=== PATIENT | female | born 1995 | race Caucasian/White ===

== ENCOUNTER 2017-04-29 09:47 | Emergency (ER) | payer BC, SELFPAY ==
[2017-04-29 09:57] VITALS: BP 141/81; PULSE 87; RESP 18; TEMP 36.6; O2SAT 98; BMI 37.2
--- NOTE | 2017-04-29 10:04 | HMH.EDGENADL ---
ED Disposition Clinical Impression: Strain of thoracic spine Qualifiers: Encounter type: initial encounter Qualified Code(s): S29.019A - Strain of muscle and tendon of unspecified wall of thorax, initial encounter Disposition: Home, Self-Care Condition on Discharge: Good Instructions: DI for Thoracic Back Pain Additional Instructions: Off work until 05/04/16. Tylenol for pain. Additional instructions for BACK PAIN: See your physician as soon as possible for further evaluation. Return immediately if back pain becomes intolerable, or if fever, numbness or weakness of your legs, abdominal pain or vaginal bleeding, loss of control of your bowels or bladder. Forms: Work/School Release - Critical Care Critical Care Time: No Attestation: On , the high probability of a clinically significant, sudden or life threatening deterioration of the following system(s) required my full and direct attention, intervention and personal management. The time I documented below is in addition to time spent performing reported procedures but includes the following listed in this critical care notation. Medical Decision Making Vital Signs: 04/29/17 09:57 Temperature 97.8 F Temperature Source Oral Pulse Rate [Right Brachial] 87 Respiratory Rate 18 Blood Pressure [Right Arm] 141/81 Blood Pressure Mean [Right Arm] 101 Blood Pressure Source [Right Arm] Automatic Cuff Blood Pressure Position [Right Arm] Sitting 02 Sat by Pulse Oximetry 98 Oxygen Delivery Method Room Air - Leno Inquiry Pt receiving controlled substance: No Medical Decision Making Narrative: Patient declines anything for pain in the emergency room, including Tylenol. The patient says she does not currently need to urinate and does not want to wait to provide a urine specimen. I discussed with her that her pain is most likely musculoskeletal but offered to check urinalysis, but she declines. I estimate there is LOW risk for ABDOMINAL AORTIC ANEURYSM, ACUTE AORTIC DISSECTION, CAUDA EQUINA SYNDROME, EPIDURAL MASS LESION, OR CORD COMPRESSION, thus I consider the discharge disposition reasonable. General Adult HPI - General Chief complaint: Back Pain/Injury Stated complaint: back pain 8 weeks Mode of Arrival: Family Vehicle Limitations: No Limitations Description of Symptoms (Recalled from ER Triage Doc. by RN): PT STATES THAT AROUND 0900 SHE GOT A SHARP PAIN ON HER MID SPINE. PATIENT IS 8 WEEKS - History of Present Illness HPI narrative: The patient states that at 9 AM at work while doing some light activity she developed a pain over her lower thoracic spine area in the midline. Initially it was mild, felt like a pulled muscle. She says she tried to pop her back to get rid of it but it made the pain worse when she twisted to do so. She says the pain worsens when she bends forward, arches her back or twists side to side or breathes. Sitting up straight reduce the pain. Nothing taken for pain. No numbness or weakness. No abdominal pain. No urinary symptoms. No vomiting. No fever. She is prima , 8 weeks gestation . She had an OB visit on Thursday last week. Egg Grader is Dr. Reynolds. She called the OB office today and states that her OB said it sounded like a pulled muscle and called her in a prescription for a muscle relaxer. - Related Data Allergies Allergy/AdvReac Type Severity Reaction Status Date / Time No Known Allergies Allergy Verified 04/29/17 10:02 [facility] History I have reviewed the patient's past medical history: Yes Laterality Cases: Bilateral: Myringotomy (Ear Tubes) - *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 Smoking Status: Never smoker Alcohol Intake: never - Psychiatric History Expresses thoughts of harming self/others: None Suicide Plan Description: No Plan ROS Obtained: Yes All systems reviewed & no additional complaints - Constitutional Constitutional: Denies fever(s) - Cardiovascular Cardiovascul
[2017-04-29 11:11] VITALS: BP 140/80; PULSE 88; RESP 18; O2SAT 99
== END 2017-04-29 11:13 | disposition home or self-care (01) ==
PROVIDERS: Emergency Provider Emergency Medicine; Family Provider Family Medicine
DX: O26.891 Other specified pregnancy related conditions, first trimester (principal); S29.011A Strain of muscle and tendon of front wall of thorax, initial encounter; Z3A.08 8 weeks gestation of pregnancy
CPT/HCPCS: 99282

== ENCOUNTER 2017-10-13 20:24 | Outpatient (CLI) | payer BC, SELFPAY ==
[2017-10-13 21:00] VITALS: BMI 34.9
[2017-10-13 21:11] LABS: Microscopic, Urine URINE MICROSCOPIC (MICROSCOPIC)
[2017-10-13 21:12] LABS: Appearance,Urine CLEAR (Clear); Bilirubin,Urine Negative (Negative); Blood, Urine Negative (Negative); Color,Urine YELLOW (Yellow); Glucose,Urine (UA) Negative (Negative); Ketones,Urine Negative (Negative); Leukocyte Esterase,Urine TRACE (Negative); Nitrate,Urine Negative (Negative); PH,Urine 7.5 (5.0-8.5); Protein,Urine Negative (Negative)
[2017-10-13 21:19] VITALS: BP 118/74; PULSE 110; RESP 18; TEMP 36.6
[2017-10-13 21:20] VITALS: BMI 34.9
[2017-10-13 21:31] LABS: Bacteria,Urine 1+ /lpf
== END 2017-10-13 22:00 | disposition home or self-care (01) ==
LOC: OBOUT 20:27 → OB 20:29
PROVIDERS: Visit Provider Nurse Practitioner Obstetrics & Gynecology
DX: O26.892 Other specified pregnancy related conditions, second trimester (principal); Z3A.22 22 weeks gestation of pregnancy; M54.5 Low back pain
CPT/HCPCS: 59025; 81001

== ENCOUNTER 2021-11-08 08:01 | Emergency (ER) | payer BC, SELFPAY ==
[2021-11-08 08:20] VITALS: BP 144/89; PULSE 99; RESP 18; TEMP 36.6; O2SAT 98; BMI 40.7
[2021-11-08 08:29] LABS: Apearance,Urine Clear (Clear); Color,Urine Yellow (Yellow); PH,Urine 7.5 (5.0-8.5); Protein,Urine Negative (Negative)
[2021-11-08 08:30] LABS: Bilirubin,Urine Negative (Negative); Blood, Urine Trace (Negative); Glucose,Urine (UA) Negative (Negative); Ketones,Urine Negative (Negative); UTC Leukocyte Esterase,Urine Negative (Negative); UTC Nitrate,Urine Negative (Negative); UTC Pregnancy Test, Urine Negative (Negative); Urobilinogen,Urine 0.2 EU/dl (0.2)
--- NOTE | 2021-11-08 08:34 | HMH.EDUTC ---
[facility] Disposition Clinical Impression: Epigastric abdominal pain, Right ovarian cyst Disposition: Home, Self-Care Condition on Discharge: Good Instructions: DI for Acute Abdominal Pain, DI for Epigastric Pain Additional Instructions: You have been evaluated for upper abdominal pain. This is likely due to gastritis or an ulcer. Please follow bland diet, low acid and caffeine. Do not eat 1 to 2 hours before bedtime. Try Carafate for symptoms of abdominal pain. Follow-up with your primary care doctor in 1 to 2 days for symptom recheck. CT scan today also shows that you have a small right-sided ovarian mass, probably a cyst. 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 Prescriptions: Sucralfate [Carafate 1gm/10mL Susp] 10 ml PO ACHS PRN #250 ml PRN Reason: Acid Reflux Transmission Status: Received by [id number] Referrals: Marli Sheehan [Primary Care Provider] - Medical Decision Making - Leno Inquiry Pt receiving controlled substance: No Leno was queried for this patient: No Vital Signs: 11/08/21 08:20 11/08/21 08:43 11/08/21 09:12 Temperature 97.8 F 97.8 F Temperature Source Oral Oral Pulse Rate 79 Pulse Rate [Left Brachial] 99 H 99 H Respiratory Rate 18 18 16 Blood Pressure 119/80 Blood Pressure [Left Arm] 144/89 H 144/89 H Blood Pressure Mean 93 Blood Pressure Mean [Left Arm] 107 107 Blood Pressure Source [Left Arm] Automatic Cuff Automatic Cuff Blood Pressure Position [Left Arm] Sitting Sitting 02 Sat by Pulse Oximetry 98 98 98 Oxygen Delivery Method Room Air Room Air Room Air 11/08/21 09:35 11/08/21 11:01 11/08/21 11:38 Temperature 98.5 F Temperature Source Pulse Rate 81 79 71 Pulse Rate [Left Brachial] Respiratory Rate 16 Blood Pressure 110/66 113/62 124/76 Blood Pressure [Left Arm] Blood Pressure Mean Blood Pressure Mean [Left Arm] Blood Pressure Source [Left Arm] Blood Pressure Position [Left Arm] 02 Sat by Pulse Oximetry 96 99 Oxygen Delivery Method - Lab Data Lab Results 11/08/21 08:20: Urine Color Yellow, Urine Appearance Clear, Urine pH 8.5, Ur Specific [place] 1.010, Urine Protein Negative, Urine Glucose (UA) Negative, Urine Ketones Negative, Urine Blood Negative, Urine Nitrate Negative, Urine Bilirubin Negative, Urine Urobilinogen 0.2, Ur Leukocyte Esterase Negative, Urine RBC Occasional, Urine WBC Occasional, Ur Squamous Epith Cells 5-10, Amorphous Sediment Trace, Urine Bacteria Trace 11/08/21 08:25: Urine Color Yellow, Urine Appearance Clear, Urine pH 7.5, Ur Specific [place] 1.020, Urine Protein Negative, Urine Glucose (UA) Negative, Urine Ketones Negative, Urine Blood Trace, Urine Nitrate Negative, Urine Bilirubin Negative, Urine Urobilinogen 0.2, Ur Leukocyte Esterase Negative, [facility] Negative 11/08/21 08:55: WBC 10.9 H, RBC 4.58, Hgb 13.8, Hct 41.4, MCV 90.4, MCH 30.1, MCHC 33.3, RDW 14.3, Plt Count 287, MPV 7.8, Neut % (Auto) 76.0, Lymph % (Auto) 18.1, [place] % (Auto) 4.3, Eos % (Auto) 0.7, Baso % (Auto) 1.0, Neut # (Auto) 8.3 H, Lymph # (Auto) 2.0, [place] # (Auto) 0.5, Eos # (Auto) 0.1, Baso # (Auto) 0.1 11/08/21 08:55: Sodium 138, Potassium 3.9, Chloride 106, Carbon Dioxide 24, Anion Gap 11.9, BUN 6 L, Creatinine 0.60, Estimated Creat Clear 238, Estimated GFR 123, Est GFR ( Amer) 149, Glucose 88, Calcium 9.4, Total Bilirubin < 0.1 L, AST 21, ALT 21, Alkaline Phosphatase 75, Total Protein 7.3, Albumin 4.1, Globulin 3.2, Albumin/Globulin Ratio 1.3, Lipase 31 Result diagrams: 11/08/21 08:55 11/08/21 08:55 Orders (Tests/Meds): ED MEDICATIONS Discontinued Medications Generic Name Dose Route Start Last Admin Trade Name Freq PRN Reason Stop Dose Admin Al Hydrox/Mg Hydrox/Simethicone 30 ml 11/08/21 10:57 11/08/21 11:04 Aluminum/Magnesium/Simethicone 30ml Udc PO 11/08/21 10:58 30 ml ONCE ONE Administration Iopamidol 75 ml 11/08/21 10:13 11/08/21 10:14 Iopamidol-370 (76%);100ml Bottle IV
[2021-11-08 08:43] VITALS: BP 144/89; PULSE 99; RESP 18; TEMP 36.6; O2SAT 98; BMI 40.7
--- NOTE | 2021-11-08 09:00 | HMH.EDGENADL ---
ED Disposition Clinical Impression: Epigastric abdominal pain, Right ovarian cyst Disposition: Home, Self-Care Condition on Discharge: Good Instructions: DI for Epigastric Pain, DI for Acute Abdominal Pain Additional Instructions: You have been evaluated for upper abdominal pain. This is likely due to gastritis or an ulcer. Please follow bland diet, low acid and caffeine. Do not eat 1 to 2 hours before bedtime. Try Carafate for symptoms of abdominal pain. Follow-up with your primary care doctor in 1 to 2 days for symptom recheck. CT scan today also shows that you have a small right-sided ovarian mass, probably a cyst. 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 The time I documented below is in addition to time spent performing reported procedures but includes the following listed in this critical care notation. Medical Decision Making - Medical Records Medical records reviewed: Yes: I reviewed the patient's medical records. - Leno Inquiry Pt receiving controlled substance: No Vital Signs: 11/08/21 08:20 11/08/21 08:43 11/08/21 09:12 Temperature 97.8 F 97.8 F Temperature Source Oral Oral Pulse Rate 79 Pulse Rate [Left Brachial] 99 H 99 H Respiratory Rate 18 18 16 Blood Pressure 119/80 Blood Pressure [Left Arm] 144/89 H 144/89 H Blood Pressure Mean 93 Blood Pressure Mean [Left Arm] 107 107 Blood Pressure Source [Left Arm] Automatic Cuff Automatic Cuff Blood Pressure Position [Left Arm] Sitting Sitting 02 Sat by Pulse Oximetry 98 98 98 Oxygen Delivery Method Room Air Room Air Room Air - Lab Data Lab Results 11/08/21 08:20: Urine Color Yellow, Urine Appearance Clear, Urine pH 8.5, Ur Specific [place] 1.010, Urine Protein Negative, Urine Glucose (UA) Negative, Urine Ketones Negative, Urine Blood Negative, Urine Nitrate Negative, Urine Bilirubin Negative, Urine Urobilinogen 0.2, Ur Leukocyte Esterase Negative, Urine RBC Occasional, Urine WBC Occasional, Ur Squamous Epith Cells 5-10, Amorphous Sediment Trace, Urine Bacteria Trace 11/08/21 08:25: Urine Color Yellow, Urine Appearance Clear, Urine pH 7.5, Ur Specific [place] 1.020, Urine Protein Negative, Urine Glucose (UA) Negative, Urine Ketones Negative, Urine Blood Trace, Urine Nitrate Negative, Urine Bilirubin Negative, Urine Urobilinogen 0.2, Ur Leukocyte Esterase Negative, [facility] Negative 11/08/21 08:55: WBC 10.9 H, RBC 4.58, Hgb 13.8, Hct 41.4, MCV 90.4, MCH 30.1, MCHC 33.3, RDW 14.3, Plt Count 287, MPV 7.8, Neut % (Auto) 76.0, Lymph % (Auto) 18.1, [place] % (Auto) 4.3, Eos % (Auto) 0.7, Baso % (Auto) 1.0, Neut # (Auto) 8.3 H, Lymph # (Auto) 2.0, [place] # (Auto) 0.5, Eos # (Auto) 0.1, Baso # (Auto) 0.1 11/08/21 08:55: Sodium 138, Potassium 3.9, Chloride 106, Carbon Dioxide 24, Anion Gap 11.9, BUN 6 L, Creatinine 0.60, Estimated Creat Clear 238, Estimated GFR 123, Est GFR ( Amer) 149, Glucose 88, Calcium 9.4, Total Bilirubin < 0.1 L, AST 21, ALT 21, Alkaline Phosphatase 75, Total Protein 7.3, Albumin 4.1, Globulin 3.2, Albumin/Globulin Ratio 1.3, Lipase 31 Result diagrams: 11/08/21 08:55 11/08/21 08:55 Orders (Tests/Meds): ED MEDICATIONS Discontinued Medications Generic Name Dose Route Start Last Admin Trade Name Samiq PRN Reason Stop Dose Admin Iopamidol 75 ml 11/08/21 10:13 11/08/21 10:14 Iopamidol-370 (76%);100ml Bottle IV 11/08/21 10:14 75 ml ONCE ONE Administration Ketorolac Tromethamine 15 mg 11/08/21 09:02
[2021-11-08 09:12] VITALS: BP 119/80; PULSE 79; RESP 16; O2SAT 98
[2021-11-08 09:12] LABS: Basophils # 0.1 K/mm3 (0-0.2); Eosinophils # 0.1 K/mm3 (0.0-0.4); Eosinophils % 0.7 % (0.1-12.0); Hematocrit 41.4 % (37.0-47.0); Hemoglobin 13.8 g/dL (12.2-16.2); Lymphocytes % 18.1 % (10-50); Mean Corpuscular HGB Conc 33.3 g/dL (31.8-35.4); Mean Corpuscular Hemoglobin 30.1 pg (27.0-31.2); Mean Corpuscular Volume 90.4 fl (81-99); Mean Platelet Volume 7.8 fl (7.4-10.4); Monocytes # 0.5 K/mm3 (0.1-1.0); Monocytes % 4.3 % (1.7-9.3); Neutrophils # 8.3 K/mm3 (1.8-7.8); Platelet Count 287 K/mm3 (142-424); Red Blood Count 4.58 M/mm3 (4.20-5.40); Red Cell Distribution Width 14.3 % (11.5-17.5); White Blood Count 10.9 K/mm3 (4.8-10.8)
[2021-11-08 09:18] LABS: Alanine Aminotransferase 21 U/L (12-78); Albumin Level 4.1 g/dl (3.5-5.0); Albumin/Globulin Ratio 1.3 (1.1-1.8); Alkaline Phosphatase 75 U/L (38-126); Anion Gap 11.9 mEq/L (5-15); Aspartate Amino Transferase 21 U/L (14-36); Blood Urea Nitrogen 6 mg/dl (7-17); Calcium 9.4 mg/dl (8.4-10.2); Carbon Dioxide 24 mmol/L (22.0-30.0); Chloride 106 mmol/L (98-107); Creatinine Clearance Estimated 238 mL/min (50-200); Estimated Glomerular Filt Rate 123 ml/min (>60); GFR (African American) 149 ML/MIN (>60); Globulin 3.2 g/dL (1.3-3.2); Glucose 88 mg/dl (74-100); Lipase 31 U/L (23-300); Potassium 3.9 mmoL/L (3.5-5.1); Sodium 138 mmol/L (136-145); Total Protein,Serum 7.3 g/dl (6.3-8.2)
[2021-11-08 09:25] LABS: Bilirubin,Total < 0.1 mg/dl (0.2-1.3)
--- NOTE | 2021-11-08 09:29 | PC.NURSE ---
PT MEDICATED AT THIS TIME PER EMAR, NO FURTHER NEEDS
[2021-11-08 09:35] VITALS: BP 110/66; PULSE 81; O2SAT 96
--- NOTE | 2021-11-08 09:37 | CT_ITS ---
FINAL REPORT CLINICAL HISTORY: Epigastric pain x 3 days w nausea FINDINGS: CT OF THE ABDOMEN AND PELVIS WITH CONTRAST Axial CT images of the abdomen and pelvis were obtained after the administration of intravenous contrast. Coronal reformatted images were also obtained and reviewed.This study was performed with techniques to keep radiation doses as low as reasonably achievable (ALARA). Individualized dose reduction techniques using automated exposure control or adjustment of mA and/or kV according to the patient's size were employed. Abdomen: The lung bases are clear. The heart is normal in size. The liver has an unremarkable appearance, without evidence of mass or biliary ductal dilatation. The gallbladder is present. The spleen is unremarkable. No adrenal mass is present. The pancreas has an unremarkable appearance. The kidneys are normal, without evidence of mass or hydronephrosis. The aorta is normal in caliber. There is no free fluid or adenopathy. There is a small umbilical hernia containing fat. Pelvis: The appendix is normal. The urinary bladder is unremarkable. No inflammatory process is seen. There is a 3.9 cm probable cyst in the right ovary. There is no evidence of bowel obstruction. IMPRESSION: No evidence of acute intra-abdominal process. Normal appendix. Probable right ovarian cyst. Reviewed, Interpreted and Dictated by Mckinley Stevens III, MD Transcribed by Marcos Walsh Authenticated and [facility]
--- NOTE | 2021-11-08 09:58 | PC.NURSE ---
RADIOLOGY NOTIFIED OF CT SCAN
[2021-11-08 10:08] LABS: Microscopic, Urine URINE MICROSCOPIC (MICROSCOPIC)
[2021-11-08 10:09] LABS: Appearance,Urine CLEAR (Clear); Bilirubin,Urine Negative (Negative); Blood, Urine Negative (Negative); Color,Urine YELLOW (Yellow); Glucose,Urine (UA) Negative (Negative); Ketones,Urine Negative (Negative); Leukocyte Esterase,Urine Negative (Negative); Nitrate,Urine Negative (Negative); PH,Urine 8.5 (5.0-8.5); Protein,Urine Negative (Negative); Urobilinogen,Urine 0.2 EU/dl (0.2)
[2021-11-08 10:21] LABS: Bacteria,Urine Trace /lpf; WBC,Urine Occasional #/hpf (0-3)
[2021-11-08 10:22] LABS: Amorphous Sediment,Urine Trace /lpf; RBC,Urine Occasional #/hpf (0-3)
[2021-11-08 11:01] VITALS: BP 113/62; PULSE 79; O2SAT 99
--- NOTE | 2021-11-08 11:02 | PC.NURSE ---
ED MD AT BEDSIDE TO REEVALUATE PT
[2021-11-08 11:38] VITALS: BP 124/76; PULSE 71; RESP 16; TEMP 36.9; O2SAT 98
== END 2021-11-08 11:39 | disposition home or self-care (01) ==
LOC: UTC 08:28 → ER 08:41
PROVIDERS: Emergency Medicine; Emergency Provider Nurse Practitioner; PCP Nurse Practitioner Family
DX: N83.201 Unspecified ovarian cyst, right side (principal); R10.13 Epigastric pain
CPT/HCPCS: 74177; 80053; 81001; 81003; 81025; 83690; 85025; 96374; 96375; 99284; J2405; Q9967

== ENCOUNTER 2023-09-13 18:31 | Emergency (ER) | payer BC, SELFPAY ==
[2023-09-13 18:45] VITALS: BP 131/78; PULSE 89; RESP 18; TEMP 36.9; O2SAT 99; BMI 41.3
--- NOTE | 2023-09-13 19:25 | ED_ITS ---
Discharge Plan Disposition Patient Disposition: Home, Self-Care Condition: Good Referrals Follow up/Referrals: Marli Sheehan [Primary Care Provider] - See instructions Clinical Impressions Clinical Impression: Qualifiers: Weeks of gestation: less than 8 weeks Qualified Code(s): Z3A.01 - Less than 8 weeks gestation of Instructions Patient Instructions: Diet Discharge ED [facility]Claire [facility] [place] HPI General Stated complaint: wants test done Mode of Arrival: Ambulatory Source of Information: Patient Limitations: No Limitations Time Seen by Provider: 09/13/23 19:00 Description of Symptoms (Recalled from Triage Doc. by RN): Pt has a positive urine preg test at home and wants another one to make sure. HEENT Symptoms (Recalled from RN notes): No Resp Symptoms (Recalled from RN notes): No Skin Symptoms (Recalled from RN notes): No MS Symptoms (Recalled from RN notes): No Functional Status (Recalled from RN notes): n/a History of Present Illness Provider Complaint: 28 yr old female presents for missed period. positive urine preg test at home and wants another one to make sure. Related Data Allergies Allergy/AdvReac Type Severity Reaction Status Date / Time No Known Allergies Allergy Verified 09/13/23 19:06 Worker's Comp Is this a Worker's Comp case?: No [facility] Disclaimer: The information contained in this section may have been updated after the mathewe nt was seen, as this information can be updated by other users. 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) Smoking Status: Never smoker alcohol intake: never substance use type: denies use current occupational status: other Travel in the last 8 weeks: None household members: family housing: house ROS Obtained: Yes All systems reviewed & no additional complaints except as documented Constitutional Constitutional: Reports system reviewed and no additional complaints, except as documented Eyes Eyes: Reports system reviewed and no additional complaints, except as documented ENT Ears, Nose, Mouth, and Throat: Reports system reviewed and no additional complaints, except as documented Cardiovascular Cardiovascular: Reports system reviewed and no additional complaints, except as documented Respiratory Respiratory: Reports system reviewed and no additional complaints, except as documented Gastrointestinal Gastrointestingal: Reports system reviewed and no additional complaints, except as documented Genitourinary Female Genitourinary: Reports system reviewed and no additional complaints, exce pt as documented and Reports amenorrhea Musculoskeletal Musculoskeletal: Reports system reviewed and no additional complaints, except as documented Integumentary/Breasts Skin/Breast: Reports system reviewed and no additional complaints, except as documented Neurologic Neurologic: Reports system reviewed and no additional complaints, except as documented Endocrine Endocrine: Reports system reviewed and no additional complaints, except as documented Hematologic/Lymphatic Henatologic/Lymphatic: Reports system reviewed and no additional complaints, except as documented Allergic/Immunologic Allergic/Immunologic: Reports system reviewed and no additional complaints, except as documented Physical Exam General General appearance: alert and in no apparent distress Head Head exam: atraumatic Eye Eye exam: Present normal appearance Respiratory Respiratory exam: Present normal lung sounds bilaterally Cardiovascular Cardiovascular exam: Present regular rate and normal rhythm Neurological Exam Neurological exam: Present alert and oriented X3 Medical Decision Making Medical Records Medical records reviewed: Yes I reviewed the patient's medical records. Leno Inquiry Pt receiving controlled substance: No Leno was queried for this patient: No Vital Signs: 09/13/23 18:45 Temperature 98.4 F Temperature Source Oral Pulse Rate [Right Radial] 89 Respiratory Rate 18 Blood Pressure [Right Arm] 131/78 Blood Pressure Mean [Right Arm] 95 Blood Pressure Source [Right Arm] Automatic Cuff Blood Pressure Position [Right Arm] Sitting 02 Sat by Pulse Oximetry 99 Oxygen Delivery Method Room Air Lab Data Lab results reviewed: Yes I reviewed the patient's lab results. Orders (Tests/Meds): ORDERS Category Date Time Status Beta HCG, Quant [HCG,Quantitative] Stat Lab 09/13/23 19:19 Ordered HCG Qualitative, Serum Stat Lab 09/13/23 19:19 Ordered
[2023-09-13 19:38] LABS: UTC Pregnancy Test, Urine Positive (Negative)
[2023-09-13 19:48] VITALS: BP 131/78; PULSE 89; RESP 18; TEMP 36.9; O2SAT 99
[2023-09-13 19:58] LABS: HCG Qualitative, Serum Positive (Negative)
[2023-09-13 20:16] LABS: HCG,Quantitative 145 mIU/ml (0-5.42)
== END 2023-09-13 20:00 | disposition home or self-care (01) ==
PROVIDERS: Emergency Provider Nurse Practitioner Family; PCP Nurse Practitioner Family
DX: Z32.01 Encounter for pregnancy test, result positive (principal)
CPT/HCPCS: 81025; 84702; 84703; 99202; 99212; G0463

== ENCOUNTER 2023-09-23 10:10 | Outpatient (CLI) | payer BC, SELFPAY ==
[2023-09-23 11:56] LABS: HCG,Quantitative 7658 mIU/ml (0-5.42)
[2023-09-24 13:05] LABS: Progesterone 9.5 ng/mL (.)
== END 2023-09-23 23:59 | disposition home or self-care (01) ==
PROVIDERS: Visit Provider Obstetrics & Gynecology
DX: N92.6 Irregular menstruation, unspecified (principal)
CPT/HCPCS: 36415; 84144; 84702

== ENCOUNTER 2023-10-16 11:48 | Outpatient (CLI) | payer BC, SELFPAY ==
[2023-10-16 12:35] LABS: Basophils % 0.3 % (0.1-2.0); Eosinophils % 0.2 % (0.1-12.0); Hematocrit 37.1 % (37.0-47.0); Lymphocytes # 1.4 K/mm3 (0.7-4.5); Lymphocytes % 22.6 % (10-50); Mean Corpuscular Hemoglobin 30.2 pg (27.0-31.2); Mean Corpuscular Volume 86.2 fl (81-99); Mean Platelet Volume 8.2 fl (7.4-10.4); Monocytes # 0.3 K/mm3 (0.1-1.0); Monocytes % 5.2 % (1.7-9.3); Neutrophils # 4.5 K/mm3 (1.8-7.8); Neutrophils % 71.6 % (37.0-80.0); Platelet Count 246 K/mm3 (142-424); Red Cell Distribution Width 14.7 % (11.5-17.5); White Blood Count 6.3 K/mm3 (4.8-10.8)
[2023-10-17 08:15] LABS: HCV Ab Non Reactive (Non Reactive); Hepatitis B Surface Antigen Negative (Negative); Rubella Antibodies, IgG 7.67 index (Immune >0.99)
[2023-10-17 11:22] LABS: Rapid Plasma Reagin Ab Titer Non Reactive titer (NonRea<1:1)
[2023-10-17 13:47] LABS: HIV (1&2) Antibody Rapid NON REACTIVE
== END 2023-10-16 23:59 | disposition home or self-care (01) ==
LOC: LAB 11:48
PROVIDERS: Visit Provider Obstetrics & Gynecology
DX: Z34.91 Encounter for supervision of normal pregnancy, unspecified, first trimester (principal); Z3A.08 8 weeks gestation of pregnancy
CPT/HCPCS: 36415; 85025; 86593; 86762; 86850; 87086; 87340

== ENCOUNTER 2024-01-05 08:50 | Outpatient (CLI) | payer BC, SELFPAY ==
--- NOTE | 2024-01-05 08:53 | US_ITS ---
PROCEDURE: US OB /MATERNAL DETAIL CLINICAL INDICATION: 20 wk anatomy scan COMPARISON: No exams were available for comparison FINDINGS: Transabdominal sonographic images of the pelvis were obtained. From her established due date she is 20 weeks 0 days. Single viable intrauterine gestation. Breech position. Placenta: Anteriorplacenta grade 1. There are several placental lakes. There is an average amount of fluid. The cervix appears satisfactory. Closed and measuring 5.6 cm in length. Complete survey performed and was unremarkable on the submitted images as in PACS. No discrete anomalies identified on survey imaging by technologist. Active fetus. Three-vessel cord with satisfactory umbilical cord insertion. 4- chamber heart noted. Situs, aortic arch, LVOT, RVOT, three-vessel view appear normal. Survey of brain & ventricles Unremarkable. Cerebellum, thalamus, choroid plexus, cisterna magna appear normal. Face and neck survey unremarkable. Profile, nasion, lips and nose appeared normal. Diaphragm and chest views unremarkable. Abdomen: Both kidneys noted and unremarkable. There is unilateral renal pelvis dilation measuring 6.0 mm. Stomach and bladder noted and satisfactory. Spine: Survey of the spine satisfactory with no anomalies identified nor imaged. Cervical, thoracic, lower spine appear normal. Examination was incomplete due to position. Both arms and legs noted. Amniotic Fluid: Adequate. MVP 4.66 cm. Measurements: Average ultrasound age 20weeks 3days. Estimated due date by ultrasound age 0205/21/2024. Estimated weight 369g BPD = 20weeks 1day HC = 20weeks 0 days AC = 20weeks 5days FL = 20weeks 6days Growth Percentile= 82 Heart Rate = 138bpm Cerebellum = 20weeks 1day Humerus = 21weeks 1day HC/AC is 1.12 FL/BPD is 0.74 FL/AC is 0.22 IMPRESSION: 1. Viable fetus in the breech presentation with an anterior placenta grade 1. Difficult examination. 2. The fluid is within normal limits. MVP 4.66 cm. 3. Anatomical scan appears normal. 4. biometry is consistent with a dates. 5. There is unilateral renal pelvis dilation measuring 6 mm. 6. spine views were incomplete due to position. 7. There was a slowing of the heart during the examination. 8. Suggest repeat scan in 2-3 weeks to look at the spine and again at 28 weeks to follow-up on the renal pelvis dilation. Dictated by: Gabriel Reynolds MD 01/05/2024 17:53 Gabriel Reynolds MD in OV 01/05/2024 17:53
== END 2024-01-05 23:59 | disposition home or self-care (01) ==
LOC: RAD 08:50
PROVIDERS: Visit Provider Obstetrics & Gynecology
DX: Z36.89 Encounter for other specified antenatal screening (principal); Z3A.20 20 weeks gestation of pregnancy
CPT/HCPCS: 76811

== ENCOUNTER 2024-01-21 13:42 | Outpatient (CLI) | payer BC, SELFPAY ==
--- NOTE | 2024-01-21 13:42 | US_ITS ---
PROCEDURE: US OB FOLLOW UP CLINICAL INDICATION: 2 week follow up from anatomy- spine f/u COMPARISON: US US OB /MATERNAL DETAIL from 01/05/2024 FINDINGS: Transabdominal sonographic images of the pelvis were obtained. The following parameters are obtained: From her established due date she is 22weeks 2days Viable fetus in the breech presentation with a posterior placenta grade 1. The placenta is low lying and measures 1.9 cm from the internal cervical os. The cervix measures 5.8 cm. heart rate: 146bpm bpm. BPD: 23weeks 1day HC: 23weeks 0 days AC: 23weeks 0 days FL: 22weeks 3days HC/AC: 1.15 FL/BPD: 0.69 FL/AC: 0.21 Growth percentile: 65 Amniotic fluid: Normal, MVP 4.51 cm. No obvious anomalies evident. profile seen, stomach, bladder, kidneys, three-vessel cord, four chamber heart appear normal. spine: Cervical, thoracic and lower spine appear normal today. There is mild unilateral renal pelvis dilation measuring 3.9-4.9 mm. IMPRESSION: 1. Viable fetus in the breech presentation with an anterior low-lying placenta. The placenta is 1.9 cm from the internal os. 2. Fluid is within normal limits with an MVP 4.51 cm. 3. Anatomy of the spine today is seen and appears normal. There continues to be unilateral renal pelvis dilation up to 4.9 mm. 4. Suggest repeat scan at 28 weeks to follow the renal pelvis dilation and low lying placenta. Limited anatomical scan appears normal. 5. There has been good interval growth with the fetus currently 65th percentile. Dictated by: Gabriel Reynolds MD 01/22/2024 07:01 Gabriel Reynolds MD in [facility] 01/22/2024 07:01
== END 2024-01-21 23:59 | disposition home or self-care (01) ==
LOC: RAD 13:42
PROVIDERS: PCP Obstetrics & Gynecology; Visit Provider Obstetrics & Gynecology
DX: O99.212 Obesity complicating pregnancy, second trimester (principal); Z3A.22 22 weeks gestation of pregnancy
CPT/HCPCS: 76816

== ENCOUNTER 2024-02-02 13:36 | Outpatient (CLI) | payer BC, SELFPAY ==
[2024-02-02 14:38] LABS: Basophils % 0.4 % (0.1-2.0); Eosinophils % 0.3 % (0.1-12.0); Hematocrit 35.8 % (37.0-47.0); Hemoglobin 12.3 g/dL (12.2-16.2); Lymphocytes # 1.3 K/mm3 (0.7-4.5); Lymphocytes % 14.4 % (10-50); Mean Corpuscular HGB Conc 34.4 g/dL (31.8-35.4); Mean Corpuscular Hemoglobin 30.2 pg (27.0-31.2); Mean Corpuscular Volume 87.9 fl (81-99); Mean Platelet Volume 8.2 fl (7.4-10.4); Monocytes # 0.4 K/mm3 (0.1-1.0); Monocytes % 4.1 % (1.7-9.3); Neutrophils # 7.3 K/mm3 (1.8-7.8); Neutrophils % 80.8 % (37.0-80.0); Platelet Count 200 K/mm3 (142-424); Red Blood Count 4.07 M/mm3 (4.20-5.40); Red Cell Distribution Width 15.4 % (11.5-17.5)
[2024-02-03 12:24] LABS: Rapid Plasma Reagin Ab Titer Non Reactive titer (NonRea<1:1)
== END 2024-02-02 23:59 | disposition home or self-care (01) ==
LOC: LAB 13:37
PROVIDERS: Visit Provider Obstetrics & Gynecology
DX: Z3A.01 Less than 8 weeks gestation of pregnancy (principal)
CPT/HCPCS: 85025; 86593

== ENCOUNTER 2024-02-24 08:28 | Outpatient (CLI) | payer BC, SELFPAY ==
[2024-02-24 09:19] LABS: Glucose,Fasting 80 mg/dl (74-100)
[2024-02-24 11:47] LABS: Glucose 1 Hour 156 mg/dL (74-100)
== END 2024-02-24 23:59 | disposition home or self-care (01) ==
PROVIDERS: Visit Provider Obstetrics & Gynecology
DX: Z3A.01 Less than 8 weeks gestation of pregnancy (principal)
CPT/HCPCS: 36415; 82951

== ENCOUNTER 2024-03-02 12:47 | Outpatient (CLI) | payer BC, SELFPAY ==
--- NOTE | 2024-03-02 12:48 | US_ITS ---
PROCEDURE: US OB BIOPHYSICAL PROFILE CLINICAL INDICATION: LGA COMPARISON: US US OB /MATERNAL DETAIL from 01/05/2024 US US OB FOLLOW UP from 01/21/2024 FINDINGS: Transabdominal sonographic images of the uterus were obtained. From her established due date she is 28weeks 1day. The following parameters are obtained: Viable Fetus in the cephalic presentation with and anterior placenta grade 1. Placenta is no longer low lying. Average ultrasound age is 29weeks 3days anterior placenta grade Estimated weight 1,366g, 3 lb 0 oz Cervix measures 4.0 cm. Measurements: heart Rate = 140bpm BPD = 29weeks 3days, 76 percentile HC = 29weeks 4days, 62 percentile AC = 29weeks 4days, 81 percentile FL = 29weeks 0 days, 58 percentile HC/AC is 1.07 FL/BPD is 0.75 FL/AC is 0.22 80 percentile Amniotic fluid index: 15.55cm, MVP 5.14 cm. Qualitative AFV:2 Breathing movements: 2 Gross Body Movements: 2 Tone: 2 Biophysical profile score: 8 No obvious anomalies evident.Kidneys, bladder, stomach, four-chamber heart, three-vessel cord appear normal. No evidence of renal pelvis dilation today. IMPRESSION: 1. Viable fetus in the cephalic presentation with an placenta grade 1. The placenta is no longer low lying. 2. The fluid is within normal limits with an amniotic fluid index 15.55 cm, MVP 5.14 cm. 3. Biophysical profile is 8/8 with good breathing movement and movement seen. 4. Anatomical scan appears normal today and there is no evidence of renal pelvis dilation. 5. There has been good interval growth with the fetus currently 80th percentile. Dictated by: Gabriel Reynolds MD 03/02/2024 16:44 Gabriel Reynolds MD in [facility] 03/02/2024 16:44
== END 2024-03-02 23:59 | disposition home or self-care (01) ==
LOC: RAD 12:48
PROVIDERS: Visit Provider Obstetrics & Gynecology
DX: O36.63X0 Maternal care for excessive fetal growth, third trimester, not applicable or unspecified (principal); O99.213 Obesity complicating pregnancy, third trimester; Z3A.28 28 weeks gestation of pregnancy; E66.9 Obesity, unspecified
CPT/HCPCS: 76816; 76819

== ENCOUNTER 2024-04-01 12:40 | Outpatient (CLI) | payer BC, SELFPAY ==
--- NOTE | 2024-04-01 12:41 | US_ITS ---
PROCEDURE: US OB FOLLOW UP CLINICAL INDICATION: follow up on renal dilation/growth COMPARISON: US US OB /MATERNAL DETAIL from 01/05/2024 US US OB FOLLOW UP from 01/21/2024 US US OB BIOPHYSICAL PROFILE from 03/02/2024 FINDINGS: Transabdominal sonographic images of the pelvis were obtained. The following parameters are obtained: From her established due date she is 32weeks 3days Viable fetus in the cephalic presentation with anterior placenta grade 1. The cervix measures 4.59 cm Estimated weight 2452 grams, 5 lb 6 oz Average ultrasound age 34 weeks 4 days heart rate: 126bpm bpm. BPD: 35weeks 3days, >98 percentile HC: 34weeks 5days, 73 percent AC: 35weeks 2days, >98 percentile FL: 32weeks 6days, 47 percentile HC/AC: 0.99 FL/BPD: 0.72 FL/AC: 0.2 Growth percentile: 94 Amniotic fluid index: 15.47cm, MVP 6.42 cm No obvious anomalies evident. profile seen, stomach, bladder, kidneys, three-vessel cord, four chamber heart appear normal. The kidneys appear normal and there does not appear to be any evidence of renal pelvis dilation. IMPRESSION: 1. Viable fetus in the cephalic presentation with an anterior placenta grade 2. 2. The fluid is within normal limits with an amniotic fluid index 15.47 cm, MVP 6.42 cm. 3. Limited anatomical scan appears normal. No renal pelvis dilation today. 4. There has been good interval growth however the fetus is 94th percentile. The the abdominal circumference is approximately 3 weeks ahead. Suggest continued follow-up of growth. Dictated by: Gabriel Reynolds MD 04/01/2024 17:49 Gabriel Reynolds MD in [place] 04/01/2024 17:49
== END 2024-04-01 23:59 | disposition home or self-care (01) ==
LOC: RAD 12:41
PROVIDERS: PCP Obstetrics & Gynecology; Visit Provider Obstetrics & Gynecology
DX: O99.213 Obesity complicating pregnancy, third trimester (principal); Z3A.32 32 weeks gestation of pregnancy
CPT/HCPCS: 76816

== ENCOUNTER 2024-04-29 17:12 | Outpatient (CLI) | payer BC, MEDICAID, SELFPAY | END 2024-04-29 23:59 | disposition home or self-care (01) | LOC: LAB.DROPOF 17:12 | PROVIDERS: PCP Obstetrics & Gynecology; Visit Provider Obstetrics & Gynecology | DX: Z34.03 Encounter for supervision of normal first pregnancy, third trimester (principal) | CPT/HCPCS: 86403 ==

== ENCOUNTER 2024-05-03 13:11 | Outpatient (CLI) | payer BC, MEDICAID, SELFPAY ==
--- NOTE | 2024-05-03 13:12 | US_ITS ---
PROCEDURE: US OB BIOPHYSICAL PROFILE CLINICAL INDICATION: BPP, Growth and SPIKE COMPARISON: US US OB /MATERNAL DETAIL from 01/05/2024 US US OB FOLLOW UP from 01/21/2024 US US OB BIOPHYSICAL PROFILE from 03/02/2024 US US OB FOLLOW UP from 04/01/2024 FINDINGS: Transabdominal sonographic images of the uterus were obtained. From her established due date she is 37weeks 0 days. The following parameters are obtained: Viable Fetus in the cephalic presentation with and anterior placenta grade 2. Average ultrasound age is 39weeks 1day Estimated weight 3,706g, 8 lb 3 oz Cervix measures 3.68 cm. Measurements: heart Rate = 136bpm BPD = 38weeks 3days, 92 percentile HC = 40weeks 6days, 96 percentile AC = 39weeks 5days, >98 percentile FL = 37weeks 3days, 61 percentile HC/AC is 0.98 FL/BPD is 0.78 FL/AC is 0.2 96 percentile Amniotic fluid index: 8.85cm, MVP 4.09 cm Qualitative AFV:2 Breathing movements: 2 Gross Body Movements: 2 Tone: 2 Biophysical profile score: 8 No obvious anomalies evident.Kidneys, stomach, bladder, four-chamber heart, three-vessel cord appear normal. IMPRESSION: 1. Viable fetus in the cephalic presentation with a posterior placenta grade 2. 2. The fluid is within normal limits with an amniotic fluid index 8.85 cm, MVP 4.09 cm. 3. Biophysical profile is 8/8 with good breathing movement and good movement seen. 4. Fetus is currently large for gestational age with the abdominal circumference greater than the 98th percentile and almost 3 weeks ahead. Fetus is 96 percentile on its growth. 5. Limited anatomical scan appears normal. Dictated by: Gabriel Reynolds MD 05/03/2024 15:44 Gabriel Reynolds MD in [facility] 05/03/2024 15:44
== END 2024-05-03 23:59 | disposition home or self-care (01) ==
LOC: RAD 13:12
PROVIDERS: PCP Obstetrics & Gynecology; Visit Provider Obstetrics & Gynecology
DX: O24.410 Gestational diabetes mellitus in pregnancy, diet controlled (principal); Z3A.37 37 weeks gestation of pregnancy
CPT/HCPCS: 76816; 76819

== ENCOUNTER 2024-05-17 12:51 | Inpatient (IN) | payer BC, MEDICAID, SELFPAY ==
[2024-05-17 12:59] VITALS: BMI 40.7
[2024-05-17 14:42] LABS: Microscopic, Urine URINE MICROSCOPIC (MICROSCOPIC)
[2024-05-17 14:43] LABS: Basophils % 0.2 % (0.1-2.0); Hematocrit 35.1 % (37.0-47.0); Hemoglobin 11.8 g/dL (12.2-16.2); Lymphocytes # 1.4 K/mm3 (0.7-4.5); Lymphocytes % 16.4 % (10-50); Mean Corpuscular HGB Conc 33.6 g/dL (31.8-35.4); Mean Corpuscular Volume 83.4 fl (81-99); Mean Platelet Volume 10.5 fl (7.4-10.4); Monocytes # 0.4 K/mm3 (0.1-1.0); Neutrophils # 6.4 K/mm3 (1.8-7.8); Neutrophils % 77.9 % (37.0-80.0); Platelet Count 173 K/mm3 (142-424); Red Blood Count 4.21 M/mm3 (4.20-5.40); Red Cell Distribution Width 14.5 % (11.5-17.5); White Blood Count 8.3 K/mm3 (4.8-10.8)
[2024-05-17 14:44] VITALS: BMI 40.7
[2024-05-17 14:45] LABS: Appearance,Urine CLEAR (Clear); Bilirubin,Urine Negative (Negative); Blood, Urine Negative (Negative); Color,Urine YELLOW (Yellow); Glucose,Urine (UA) Negative (Negative); Ketones,Urine Negative (Negative); Leukocyte Esterase,Urine Negative (Negative); Nitrate,Urine Negative (Negative); Protein,Urine Negative (Negative); Specific Gravity, Urine <= 1.005 (1.005-1.030); Urobilinogen,Urine 0.2 EU/dl (0.2)
[2024-05-17 14:51] LABS: Bacteria,Urine Trace /lpf
[2024-05-17 15:02] LABS: Amphetamine/Metha Screen,Urine Negative ng/ml (<1000)
[2024-05-17 15:03] LABS: Barbiturates Screen,Urine Negative ng/ml (<200)
[2024-05-17 15:04] LABS: Benzodiazepines Screen,Urine Negative ng/ml (<200); Cannabinoid Screen,Urine Negative ng/ml (<50)
[2024-05-17 15:05] LABS: Cocaine Screen,Urine Negative ng/ml (<300)
[2024-05-17 15:06] LABS: Methadone Screen,Urine Negative ng/ml (<300); Opiate Screen,Urine Negative ng/ml (<300)
[2024-05-17] MEDS: miSOPROStol 100MCG TABLET 50 MCG PO ×2 (15:06→21:11)
[2024-05-17 15:07] LABS: Phencyclidine Screen,Urine Negative ng/ml (<25)
[2024-05-17] MEDS: LACTATED RINGERS 1000ML 1,000 ML 250 ML IV (18:29)
[2024-05-17] MEDS: DEXTROSE 5%-LACTATED RINGERS 1,000 ML 125 ML IV (18:30)
[2024-05-17 18:47] LABS: RPR W/RFX Titers Nonreactive (Nonreactive)
[2024-05-17 20:51] VITALS: BP 139/99; PULSE 84; RESP 17; TEMP 36.7; O2SAT 99
[2024-05-17] MEDS: BUTORPHANOL TARTRATE 1 MG/ML VIAL IV (21:50)
[2024-05-18] MEDS: BUTORPHANOL TARTRATE 1 MG/ML VIAL IV ×2 (00:51→03:32)
[2024-05-18 03:11] VITALS: BP 160/94; PULSE 82; RESP 20; TEMP 36.7; O2SAT 99
[2024-05-18] MEDS: miSOPROStol 100MCG TABLET 50 MCG PO (03:20)
[2024-05-18 04:01] VITALS: BP 144/82
--- NOTE | 2024-05-18 08:35 | P.HP_ITS ---
OB - H&P: HPI Antepartum History of Present Illness Chief complaint: Scheduled Induction of labor History of present illness: Mrs Yuliet Carrillo is a 29 yo at 39w1d who presents to [facility] for scheduled induction of labor. She has had good care. complicated GDMA1 and maternal obesity. She has had good glycemic control with diet. Baby is measuring LGA. Last ultrasound 05/03/24 demonstrated EFW 96 %ile, BPP 8/8, SPIKE WNL. History of Present Criteria for establishing EDC:: LMP confirmed by 1st trimester US care: good care Ultrasounds: normal mid trimester US Obstetrical complications: gestational diabetes (diet controlled) Medical complications: none Labs Blood type: A (+) positive Rubella: immune RPR/VDRL: nonreactive GBS status: negative HBsAG: negative [facility] Disclaimer: The information contained in this section may have been updated after the patient was seen, as this information can be updated by other users. Medical History (Updated 05/13/24 @ 11:07 by Ynai Dietz DO) LGA (large for gestational age) fetus affecting management of mother GDM (gestational diabetes mellitus), class A1 Intermittent epigastric abdominal pain Maternal obesity affecting , antepartum Anxiety and depression Surgical History No significant past surgical history Family History Grandmother Stroke Hypertension Grandfather Hypertension 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 Smoking Status: Never smoker alcohol intake: never substance use type: denies use current occupational status: employed and other Travel in the last 8 weeks: None household members: family housing: house Have you lived/traveled outside US in past 30 days?: No Contact w/someone who lives/traveled outside US past 30 days?: No Exposure to someone with infectious disease in past 14 days?: No Do you have a fever (greater than 100.4 F or 38 C)?: No Have you tested positive for COVID-19: No Exposed to someone with COVID-19 in past 14 days?: No Do you have a sore throat?: No Do you have a cough?: No Do you have any weakness?: No Do you have any diarrhea?: No Are you experiencing any unusual bleeding?: No Do you have any muscle aches/pain?: No Do you have any abdominal pain?: No Are you experiencing loss of taste or smell?: No Other Medical History Have you received the Flu Vaccine for this season: Yes Have you received the Pneumonia Vaccine: No Review of Systems Review of Systems Review of systems:: pertinent systems reviewed and negative unless documented below Meds Home Medications and Allergies Home Medications ?Medication ?Instructions ?Recorded ?Confirmed ?Type vits no.126-ferrous fum 1 tab PO DAILY 10/16/23 05/18/24 History 28 mg iron-folic acid 800 mcg tablet (Classic ) lancing device with lancets kit #1 ea 02/24/24 05/18/24 Rx (Accu-Chek FastClix Lancing Device kit) blood sugar diagnostic (Accu-Chek #10 ea 02/29/24 05/18/24 History Guide test strips) blood-glucose meter (Accu-Chek #1 ea 02/29/24 05/18/24 Rx Guide Me Glucose Meter) lancets (Accu-Chek Softclix #100 ea 02/29/24 05/18/24 History Lancets) New Prescriptions to Start Prescriptions: Allergies Allergy/AdvReac Type Severity Reaction Status Date / Time No Known Allergies Allergy Verified 05/13/24 10:28 OB - H&P: Exam Physical Exam Vital signs: Temp Pulse Resp BP Pulse Ox O2 Del Method 98.0 F 82 20 144/82 H 99 Room Air 05/18/24 03:11 05/18/24 03:11 05/18/24 03:11 05/18/24 04:01 05/18/24 03:11 05/18/24 03:11 Constitutional no acute distress Routine HEENT Exam Head: Present normocephalic and atraumatic Eye: Absent conjunctivae pink ENT: Present mucous membranes moist Routine Neck Exam Present full ROM Routine Respiratory Exam Present CTA bilaterally and normal respiratory effort Routine Cardiovascular Exam Present RRR Routine Abdominal Exam Present soft (Gravid); Absent tenderness Routine Rectal Exam Patient deferred: visual exam Routine Exam External: Present normal urethra appearance; Absent erythema, tenderness, lesions or lacerations Routine Extremities Exam Present full ROM; Absent edema or calf tenderness Routine Neurological Exam Present alert, moving all extremities and normal speech Routine Psychiatric Exam Present normal affect and cooperative Detailed Labor and Delivery Exam Dilation (cm): 4 Effacement (%): 60 Cervix position: mid station: -2 Consistency: soft Membranes: artificially ruptured Amniotic fluid: clear Baseline heart rate: 120 monitor accelerations: Present monitor decelerations: None terminal manager variability: Moderate (11-25) OB - Results Labs Labs: Short CBC 05/17/24 Range/Units 14:35 WBC 8.3 (4.8-10.8) K/mm3 Hgb 11.8 L (12.2-16.2) g/dL Hct 35.1 L (37.0-47.0) % Plt Count 173 (142-424) K/mm3 Urine 05/17/24 Range/Units Unknown Urine Color Yellow (Yellow) Urine Appearance Clear (Clear) Urine pH 7.0 (5.0-8.5) Ur Specific [place] <= 1.005 (1.005-1.030) Urine Protein Negative (Negative) Urine Glucose (UA) Negative (Negative) OB - A/P Antepartum (1) GDM (gestational diabetes mellitus), class A1: Status: Acute (2) LGA (large for gestational age) fetus affecting management of mother: Status: Acute (3) Maternal obesity affecting , antepartum: Status: Acute Additional Plan Planning to breastfeed?: Yes Plan: induction Additional Information:: Admit to [facility] For scheduled induction of labor with Cytotec followed by Pitocin GBS negative Close monitoring Anticipate vaginal delivery
--- NOTE | 2024-05-18 09:13 | P.PNANES_ITS ---
[facility] Disclaimer: The information contained in this section may have been updated after the patient was seen, as this information can be updated by other users. Medical History (Updated 05/13/24 @ 11:07 by Yani Dietz DO) LGA (large for gestational age) fetus affecting management of mother GDM (gestational diabetes mellitus), class A1 Intermittent epigastric abdominal pain Maternal obesity affecting , antepartum Anxiety and depression Surgical History No significant past surgical history Family History Grandmother Stroke Hypertension Grandfather Hypertension 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 Smoking Status: Never smoker alcohol intake: never substance use type: denies use current occupational status: employed and other Travel in the last 8 weeks: None household members: family housing: house Have you lived/traveled outside US in past 30 days?: No Contact w/someone who lives/traveled outside US past 30 days?: No Exposure to someone with infectious disease in past 14 days?: No Do you have a fever (greater than 100.4 F or 38 C)?: No Have you tested positive for COVID-19: No Exposed to someone with COVID-19 in past 14 days?: No Do you have a sore throat?: No Do you have a cough?: No Do you have any weakness?: No Do you have any diarrhea?: No Are you experiencing any unusual bleeding?: No Do you have any muscle aches/pain?: No Do you have any abdominal pain?: No Are you experiencing loss of taste or smell?: No [facility] Anesthesia Checklist Patient Identification Patient Identification: Arm Band and Verbal (Name & ) Structural Data Admitted From: Inpatient Planned Operative Procedure/s: labour epidural Consent for Planned Operative Procedure(s) Verified: Yes Verified Documents: Surgical Consent NPO Status Verified Time NPO: 09:13 Additional verifications Patient : Yes Anesthesia Reactions: No Hx Blood Transfusions: No Blood Transfusion Reaction: No Cephalosporin Allergy: No Previous Colonoscopy: No Cardiovascular Assessment Heart Sounds: S1 & S2 Pulse Strength: Baseline Pulse Rhythm: Regular Peripheral Edema: No Airway Assessment Mallampati Score:: Class I C-Spine Mobility Assessed: Yes TMJ Mobility Assessed: Yes Dentition: Good Dentition Neurological Assessment Level of Consciousness: Awake, Alert and Appropriate Hx Seizures: No Numbness or tingling in extremities: No Anesthesia Plan Anesthesia Risk discussed: Yes Anesthesia Plan: Verified ASA Class: II Anesthesia Type: Epidural
[2024-05-18] MEDS: OXYTOCIN/RINGERS LACTATE 30 UNITS/500 ML BAG 999 UNITS IV (11:28)
--- NOTE | 2024-05-18 11:55 | P.PCN_ITS ---
Delivery Note Delivery Date:: 05/18/24 Delivery Time:: 11:23 Anesthesia Type: Epidural Was labor medically induced?: No Induction method: per misoprostol protocol Gestational age (weeks): 39 delivered prior to 39 weeks?: No Gender: Male at 1 minute: 9 at 5 minutes: 9 Delivery Procedure:: Mom complete with epidural. Pushed for approximately 10 minutes. Head delivered spontaneously over intact perineum in MAIN position. No nuchal cord. Anterior shoulder delivered with gentle downward pressure. Posterior shoulder and remainder of body delivered spontaneously. Baby placed on maternal abdomen, mouth and nares bulb suctioned, warmed/dried and stimulated. Delayed cord cla mping was performed for 60 seconds. Cord was clamped and cut by father of baby. Cord blood was obtained. Placenta delivered spontaneously and intact. Placenta will be sent to pathology for review. Second degree perineal laceration repaired with 3-0 Vicryl. Right periurethral abrasion was hemostatic. Mom and baby were skin to skin and doing well after delivery. Live female/male baby (baby's name is Nam) APGARs 9 (1 min), 9 (5 min) EBL 50 mL Placental Delivery Description: Spontaneous
[2024-05-18] MEDS: IBUPROFEN 400 MG TABLET 800 MG PO (13:48)
[2024-05-18] MEDS: WITCH HAZEL 40 PADS/BOX 1 EACH TP (13:48)
[2024-05-18] MEDS: BENZOCAINE-MENTHOL SPRAY 56GM CAN TP (13:48)
[2024-05-18] MEDS: ACETAMINOPHEN 500MG TAB 1000 MG PO ×2 (13:49→20:23)
[2024-05-18] MEDS: PRENATAL MULTIVITAMIN W/IRON 1 EACH PO (17:09)
[2024-05-18 20:08] VITALS: BP 136/85; PULSE 64; RESP 17; TEMP 36.6; O2SAT 99
[2024-05-19] MEDS: IBUPROFEN 400 MG TABLET 800 MG PO ×3 (02:48→23:58)
[2024-05-19 05:14] VITALS: BP 136/89; PULSE 82; RESP 18; TEMP 36.5; O2SAT 100
[2024-05-19 05:15] LABS: POC Glucose,Bedside 69 (70-110)
[2024-05-19 06:48] LABS: Basophils % 0.4 % (0.1-2.0); Hematocrit 32.7 % (37.0-47.0); Hemoglobin 10.8 g/dL (12.2-16.2); Lymphocytes # 1.6 K/mm3 (0.7-4.5); Lymphocytes % 22.5 % (10-50); Mean Corpuscular Hemoglobin 27.8 pg (27.0-31.2); Mean Corpuscular Volume 84.3 fl (81-99); Mean Platelet Volume 10.7 fl (7.4-10.4); Monocytes # 0.4 K/mm3 (0.1-1.0); Monocytes % 5.1 % (1.7-9.3); Neutrophils % 71.4 % (37.0-80.0); Platelet Count 159 K/mm3 (142-424); Red Blood Count 3.88 M/mm3 (4.20-5.40); Red Cell Distribution Width 14.6 % (11.5-17.5)
[2024-05-19 08:30] VITALS: BP 138/97; PULSE 77; TEMP 36.7; O2SAT 99
--- NOTE | 2024-05-19 09:34 | EXP.ACUTE.PN ---
Subjective *Date: 05/19/24 *Time: 09:34 Interval history: She is 1 day from a vaginal delivery. She is doing well. She is breast-feeding. Her lochia is normal. Medical Exam Vital signs and Labs for Last 24 Hours: Vital Signs Temp Pulse Resp BP Pulse Ox O2 Del Method 05/19/24 05:14 97.7 F 82 18 136/89 100 Room Air 05/18/24 20:08 97.8 F 64 17 136/85 99 Room Air Laboratory Results - last 24 hr 05/19/24 05:07: POC Glucose 69 L 05/19/24 06:29: WBC 7.0, RBC 3.88 L, Hgb 10.8 L, Hct 32.7 L, MCV 84.3, MCH 27.8, MCHC 33.0, RDW 14.6, Plt Count 159, MPV 10.7 H, Neut % (Auto) 71.4, Lymph % (Auto) 22.5, [place] % (Auto) 5.1, Eos % (Auto) 0.0 L, Baso % (Auto) 0.4, Neut # (Auto) 5.0, Lymph # (Auto) 1.6, [place] # (Auto) 0.4, Eos # (Auto) 0.0, Baso # (Auto) 0.0 I & O for Labs for Last 24 Hours: Intake & Output 05/16/24 05/17/24 05/18/24 05/19/24 11:59 11:59 11:59 11:59 Weight 230 lb Head: Present atraumatic ENT: Present normal exam Neck: Present normal inspection Respiratory: Present normal respiratory effort; Absent accessory muscle use Assessment and Plan *Assessment and plan (1) LGA (large for gestational age) fetus affecting management of mother: Status: Acute Qualifiers: Fetus number: single or unspecified fetus Trimester: third trimester Qualified Code(s): O36.63X0 - Maternal care for excessive growth, third trimester, not applicable or unspecified Category: Medical Code(s): O36.60X0 - Maternal care for excessive growth, unspecified trimester, not applicable or unspecified (2) GDM (gestational diabetes mellitus), class A1: Status: Acute Category: Medical Code(s): O24.410 - Gestational diabetes mellitus in , diet controlled (3) Maternal obesity affecting , antepartum: Status: Acute Qualifiers: Obesity type affecting : unspecified obesity Qualified Code(s): O99.210 - Obesity complicating , unspecified trimester Category: Medical Code(s): O99.210 - Obesity complicating , unspecified trimester (4) Normal delivery: Status: Acute Category: Medical Code(s): O80 - Encounter for full-term uncomplicated delivery Plan She is doing very well today. Her blood pressure has been up slightly so we are going to watch her for another day. If she has any further episodes of increased blood pressure we will consider labetalol.
[2024-05-19] MEDS: ACETAMINOPHEN 500MG TAB 1000 MG PO (16:03)
[2024-05-19] MEDS: PRENATAL MULTIVITAMIN W/IRON 1 EACH PO (16:03)
[2024-05-19 16:31] VITALS: BP 130/86
[2024-05-19] MEDS: OXYCODONE 5MG IMMEDIATE RELEASE TABLET 5 MG PO (16:33)
[2024-05-19 19:36] VITALS: BP 173/101; PULSE 70; RESP 18; TEMP 36.7
[2024-05-19 20:20] VITALS: BP 167/92; PULSE 62
[2024-05-19] MEDS: LANOLIN CREAM 40GM TP (20:23)
[2024-05-19] MEDS: SENNA 8.6MG TABLET 8.6 MG PO (20:25)
[2024-05-19 20:50] VITALS: BP 130/74; PULSE 82
[2024-05-20] VITALS (9 sets, daily range): BP systolic 123–158; BP diastolic 64–106; PULSE 65–86; RESP 15–19; TEMP 36.5–36.7; O2SAT 98–100
[2024-05-20] MEDS: IBUPROFEN 400 MG TABLET 800 MG PO ×2 (06:44→17:34)
[2024-05-20] MEDS: BENZOCAINE-MENTHOL SPRAY 56GM CAN TP (06:44)
--- NOTE | 2024-05-20 08:28 | EXP.ACUTE.PN ---
Subjective *Date: 05/20/24 *Time: 08:28 Interval history: PPD # 2 s/p Feeling well. Pain controlled. Breast feeding. Lochia is light. Voiding without difficulty and passing flatus. Tolerating regular diet. Denies fever/chills, chest pain and shortness of breath. No headaches, vision changes, lightheadedness/dizziness. No lower extremity swelling. Ambulating well ad zora. Medical Exam Vital signs and Labs for Last 24 Hours: Vital Signs Temp Pulse BP Pulse Ox O2 Del Method 05/19/24 16:31 130/86 05/19/24 08:30 98.1 F 77 138/97 H 99 Room Air I & O for Labs for Last 24 Hours: Intake & Output 05/17/24 05/18/24 05/19/24 05/20/24 23:59 23:59 23:59 23:59 Weight 230 lb Head: Present atraumatic and normocephalic ENT: Present mucous membranes moist Neck: Present normal inspection and full ROM Respiratory: Present CTA bilaterally and normal respiratory effort Cardiac: Present Reg Rate and Rhythm GI: Present soft; Absent distention or tenderness Comments:: Uterine fundus firm and below umbilicus Rectal (female): Present deferred (female): Present deferred Extremities: Present full ROM; Absent edema or calf tenderness Neuro: Present alert, awake and moves all extremities Assessment and Plan *Assessment and plan (1) Normal delivery: Status: Acute Category: Medical Code(s): O80 - Encounter for full-term uncomplicated delivery (2) Gestational hypertension without significant proteinuria, : Status: Acute Category: Medical Code(s): O13.5 - Gestational [-induced] hypertension without significant proteinuria, complicating the puerperium (3) GDM (gestational diabetes mellitus), class A1: Status: Acute Category: Medical Code(s): O24.410 - Gestational diabetes mellitus in , diet controlled (4) LGA (large for gestational age) fetus affecting management of mother: Status: Acute Qualifiers: Fetus number: single or unspecified fetus Trimester: third trimester Qualified Code(s): O36.63X0 - Maternal care for excessive growth, third trimester, not applicable or unspecified Category: Medical Code(s): O36.60X0 - Maternal care for excessive growth, unspecified trimester, not applicable or unspecified (5) Maternal obesity affecting , antepartum: Status: Acute Qualifiers: Obesity type affecting : unspecified obesity Qualified Code(s): O99.210 - Obesity complicating , unspecified trimester Category: Medical Code(s): O99.210 - Obesity complicating , unspecified trimester Plan Feeling well BP is elevated . She is asymptomatic. PIH labs ordered. Start Labetalol 200 mg q 12 hours Encouraged increased ambulation Close monitoring of BP and symptoms Possible d/c home tomorrow if BP normotensive and she remains asymptomatic
[2024-05-20] MEDS: LABETALOL 100MG TABLET 200 MG PO ×2 (09:07→20:33)
[2024-05-20 09:21] LABS: Basophils % 0.5 % (0.1-2.0); Hematocrit 32.8 % (37.0-47.0); Hemoglobin 10.9 g/dL (12.2-16.2); Lymphocytes # 1.4 K/mm3 (0.7-4.5); Lymphocytes % 18.7 % (10-50); Mean Corpuscular HGB Conc 33.2 g/dL (31.8-35.4); Mean Corpuscular Hemoglobin 28.2 pg (27.0-31.2); Mean Platelet Volume 10.2 fl (7.4-10.4); Monocytes # 0.4 K/mm3 (0.1-1.0); Monocytes % 5.2 % (1.7-9.3); Neutrophils # 5.8 K/mm3 (1.8-7.8); Neutrophils % 75.2 % (37.0-80.0); Platelet Count 190 K/mm3 (142-424); Red Blood Count 3.86 M/mm3 (4.20-5.40); Red Cell Distribution Width 14.7 % (11.5-17.5); White Blood Count 7.7 K/mm3 (4.8-10.8)
[2024-05-20 09:29] LABS: Alanine Aminotransferase 25 U/L (12-78); Albumin Level 3.2 g/dl (3.5-5.0); Albumin/Globulin Ratio 1.2 (1.1-1.8); Alkaline Phosphatase 87 U/L (38-126); Aspartate Amino Transferase 32 U/L (14-36); Bilirubin,Total 0.2 mg/dl (0.2-1.3); Blood Urea Nitrogen 3 mg/dl (7-17); Calcium 8.8 mg/dl (8.4-10.2); Carbon Dioxide 24 mmol/L (22.0-30.0); Chloride 105 mmol/L (98-107); Creatinine Clearance Estimated 232 mL/min (50-200); Estimated Glomerular Filt Rate 120 ml/min (>60); GFR (African American) 145 ML/MIN (>60); Globulin 2.7 g/dL (1.3-3.2); Glucose 77 mg/dl (74-100); Sodium 136 mmol/L (136-145); Total Protein,Serum 5.9 g/dl (6.3-8.2); Uric Acid 4.7 mg/dl (2.5-6.2)
[2024-05-20 09:33] LABS: Activated Partial Thrombo Time 24.1 seconds (22.5-28.5); Fibrinogen 340 mg/dL (208.1-352.0); INR 0.89 (0.9-1.1); Prothrombin Time 9.9 seconds (9.2-12.1)
[2024-05-20] MEDS: ACETAMINOPHEN 500MG TAB 1000 MG PO ×2 (11:53→17:34)
[2024-05-20] MEDS: PRENATAL MULTIVITAMIN W/IRON 1 EACH PO (16:43)
[2024-05-21 00:16] VITALS: BP 138/74; PULSE 74; RESP 16; TEMP 36.4; O2SAT 98
[2024-05-21] MEDS: ACETAMINOPHEN 500MG TAB 1000 MG PO (03:03)
[2024-05-21 05:30] VITALS: BP 110/57; PULSE 86; RESP 17; TEMP 36.9; O2SAT 96
[2024-05-21] MEDS: LABETALOL 100MG TABLET 200 MG PO (08:06)
[2024-05-21 08:07] VITALS: BP 141/80; PULSE 78; RESP 15; TEMP 36.4; O2SAT 99
--- NOTE | 2024-05-21 11:07 | P.DS_ITS ---
General Admission date:: 05/17/24 Discharge date: 05/21/24 HPI HPI HPI: PPD # 3 s/p Feeling well. Pain controlled. Breast feeding. Lochia is appropriate. Voiding without difficulty and passing flatus. Tolerating regular diet. Denies fever/chills, chest pain and shortness of breath. No headaches, vision changes, lightheadedness/dizziness. No lower extremity swelling. Ambulating well ad zora. She is doing well on Labetalol. Hospital Course Hospital Course Hospital Course: Mrs Yuliet Carrillo is a 29 yo at 39w1d who presents to [facility] for scheduled induction of labor. She has had good care. complicated GDMA1 and maternal obesity. She has had good glycemic control with diet. Baby is measuring LGA. Last ultrasound 05/03/24 demonstrated EFW 96 %ile, BPP 8/8, SPIKE WNL. She underwent induction of labor with Cytotec followed by Pitocin. She had a normal spontaneous vaginal delivery on 05/18/24 at 1123. She delivered a live male baby, Nam, weighing 8 lb 3 oz. APGARs 9 (1 min), 9 (5 min) EBL 50 mL. She did well . Pain controlled. Breast feeding. Light lochia. Voiding without difficulty and passing flatus. Tolerating regular diet. Denies fever/chills, chest pain and shortness of breath. No headaches, dizziness/lightheadedness or vision changes. Vital signs stable, afebrile. Heart regular rate and rhythm. Lungs clear to auscultation. Abdomen soft, nontender. No lower extremity swelling. Ambulating well ad zora. She developed elevated blood pressure after delivery. PIH labs within normal limits. She was started on Labetalol 200 mg q 12 hours. BP well controlled with medication. She was discharged to home on POD # 3 with instructions to follow-up in the office in 3 days as scheduled for BP check. Exam Data for Last 24 hours Vital signs and Labs for Last 24 Hours: Temp Pulse Resp BP Pulse Ox O2 Del Method 97.6 F 78 15 141/80 H 99 Room Air 05/21/24 08:07 05/21/24 08:07 05/21/24 08:07 05/21/24 08:07 05/21/24 08:07 05/21/24 08:07 Constitutional Constitutional: no acute distress and cooperative *Routine HEENT Exam Head: Present normocephalic and atraumatic Eye: Absent conjunctivae pink ENT: Present mucous membranes moist *Routine Neck Exam Neck: Present full ROM *Routine Respiratory Exam Respiratory: Present CTA bilaterally and normal respiratory effort *Routine Cardiovascular Exam Cardiovascular: Present RRR *Routine Abdominal Exam Abdominal: Present soft; Absent tenderness Comments: Uterine fundus firm and below umbilicus *Routine Rectal Exam Patient deferred: visual exam *Routine Exam Patient deferred: external exam *Routine Extremities Exam Extremities: Present full ROM; Absent edema or calf tenderness *Routine Neurological Exam Neurological: Present alert, moving all extremities and normal speech Routine Psychiatric Exam Psychiatric: Present normal affect and cooperative DS: Diagnosis Discharge Diagnosis (1) Normal delivery: Status: Acute Code(s): O80 - Encounter for full-term uncomplicated delivery (2) Gestational hypertension without significant proteinuria, : Status: Acute Code(s): O13.5 - Gestational [-induced] hypertension without significant proteinuria, complicating the puerperium (3) GDM (gestational diabetes mellitus), class A1: Status: Acute Code(s): O24.410 - Gestational diabetes mellitus in , diet controlled (4) LGA (large for gestational age) fetus affecting management of mother: Status: Acute Code(s): O36.60X0 - Maternal care for excessive growth, unspecified trimester, not applicable or unspecified Qualifiers: Fetus number: single or unspecified fetus Trimester: third trimester Qualified Code(s): O36.63X0 - Maternal care for excessive growth, third trimester, not applicable or unspecified (5) Maternal obesity affecting , antepartum: Status: Acute Code(s): O99.210 - Obesity complicating , unspecified trimester Qualifiers: Obesity type affecting : unspecified obesity Qualified Code(s): O99.210 - Obesity complicating , unspecified trimester Meds Home Medications and Allergies Home Medications ?Medication ?Instructions ?Recorded ?Confirmed ?Type vits no.126-ferrous fum 1 tab PO DAILY 10/16/23 05/18/24 History 28 mg iron-folic acid 800 mcg tablet (Classic ) ibuprofen 800 mg tablet 800 mg PO Q8H PRN pain #20 tabs 05/21/24 Rx labetalol 100 mg tablet 200 mg (2 x 100 mg) PO BID #120 05/21/24 Rx tabs New Prescriptions to Start Prescriptions: ibuprofen Yani Dietz labetalol Yani Dietz Allergies Allergy/AdvReac Type Severity Reaction Status Date / Time No Known Allergies Allergy Verified 05/13/24 10:28 Discharge Plan Disposition Patient Disposition: Home, Self-Care Condition: Good Discharge Order Discharge Orders: Discharge Order (Routine); Ordered 05/21/24 Ordered By: Yani Dietz Follow up Plan Follow up with: Yani Dietz DO [Staff Physician] - 05/23/24 3:15 pm Prescriptions/Medication Reconciliation: New labetalol 100 mg Tablet 200 mg PO BID Qty: 120 0RF ibuprofen 800 mg tablet 800 mg PO Q8H PRN (Reason: pain) Qty: 20 0RF Continued Classic 28 mg iron- 800 mcg tablet 1 tab PO DAILY Discontinued (DME) Accu-Chek Guide test strips Strip See Rx Instructions .ROUTE .MEDSUPPLY Qty: 10 Rx Instructions: As directed (DME) lancets [Accu-Chek Softclix Lancets] Misc See Rx Instructions .ROUTE .MEDSUPPLY Qty: 100 Rx Instructions: As directed (DME) blood-glucose meter [Accu-Chek Guide Me Glucose Mtr] Misc See Rx Instructions .Route Qty: 1 0RF Rx Instructions: As directed (DME) lancing device with lancets [Accu-Chek FastClix Lancing Dev] Kit See Rx Instructions .Route Qty: 1 0RF Rx Instructions: 4x daily. Problem Reconciliation Problems Reviewed?: Yes Patient Discharge Instructions ACTIVITY: Limited activity DIET: continue same diet and regular diet Additional Instructions: Congratulations!! Discharge: 1. Take 800 mg Ibuprofen every 8 hours as needed for pain. You can also take 500-1000 mg of Tylenol in between doses, every 6-8 hours. 2. Nothing in the vagina for 6 weeks - no intercourse, douching or tampons. No tub baths/hot tubs or swimming pools 3. Reasons to return to L&D or call On-Call doctor - fever (greater than 100.4) - heavy vaginal bleeding (soaking through 1 pad in less than 2 hours) - vaginal discharge (malodorous and/or purulent) - severe headaches not resolved by medication or rest and leg tenderness/edema 4. depression/blues - Normal to feel anxious/overwhelmed for first 2 weeks - Talk to your doctor if: severe anxiety, trouble bonding with baby, withdrawing from other family members, thoughts of harming yourself or others Yani Dietz DO [facility] [phone] Patient Instructions: Depression, Hemorrhage, DI for Labor and Delivery, Vaginal , DI for Pre-eclampsia, [facility] Post Discharge Instructions Print Language: Kyr[place]z Providers Primary Care Provider: Provider,Referral Admit Provider: Yani Dietz Attending Provider: Yani Dietz
== END 2024-05-21 12:42 | disposition home or self-care (01) | DRG 807 ==
LOC: OBOUT 05-18 07:53 → OB 05-18 07:54
PROVIDERS: Admitting Provider Obstetrics & Gynecology; Visit Provider Obstetrics & Gynecology
DX: O24.410 Gestational diabetes mellitus in pregnancy, diet controlled (principal); Z37.0 Single live birth; O36.63X0 Maternal care for excessive fetal growth, third trimester, not applicable or unspecified; O70.1 Second degree perineal laceration during delivery; O13.5 Gestational [pregnancy-induced] hypertension without significant proteinuria, complicating the puerperium; O99.214 Obesity complicating childbirth; Z3A.39 39 weeks gestation of pregnancy; E66.01 Morbid (severe) obesity due to excess calories
CPT/HCPCS: 36415; 59025; 80053; 80307; 81001; 82962; 84550; 85025; 85384; 85610; 85730; 86592; 86850; 94761; G0283; J0595; J3010; J7120